=== PATIENT | female | born 1970 | race Caucasian/White ===

== ENCOUNTER 2017-08-20 19:08 | Emergency (ER) | payer BC ==
[~2017-08-20] VITALS: Ht 175.3 cm; Wt 92.8 kg
[~2017-08-20 19:08] MED LIST: AMBIEN10 MG PO; AUGMENTIN875TAB OR; BEYAZ PO; CIPROFLOXACN500 MG PO; FLONASE SPRAY50 MCG; NAPROSYN500 MG PO; ONDANSETRON4 MG PO; PYRIDIUM200 MG PO; ROBITUSSIN AC10 ML PO; ROCEPHIN 1 GM1 GM IM; YAZ1 TAB OR; ZOFRAN ODT4 MG PO; ZYRTEC10 M1 PO
[2017-08-20 20:21] LABS: HEMATOCRIT 38.5 % (37.0-47.0); HEMOGLOBIN 13.2 g/dl (12.0-16.0); IMMATURE GRANULOCYTES 0.3 % (0.0-1.0); MEAN CELL VOLUME 85.9 fL CALC (80.0-100.0); MEAN CORPUSCULAR HGB 29.5 pG CALC (26.0-32.0); MEAN CORPUSCULAR HGB CONC 34.3 g/L CALC (32.0-36.0); NEUT# 7.75 thou/uL (2.00-7.15); RED BLOOD COUNT 4.48 mill/uL (4.20-5.60); RED CELL DISTRI WIDTH 13.4 % (11.5-15.5); URINE BILIRUBIN - DIPSTICK NEGATIVE (NEGATIVE); URINE BLOOD DIPSTICK NEGATIVE (NEGATIVE); URINE CLARITY CLEAR; URINE COLOR YELLOW; URINE GLUCOSE - DIPSTICK NEGATIVE (NEGATIVE); URINE KETONE NEGATIVE (NEGATIVE); URINE LEUK ESTERASE NEGATIVE (NEGATIVE); URINE NITRITE - DIPSTICK NEGATIVE (Negative); URINE PROTEIN - DIPSTICK NEGATIVE (NEG-TRACE); URINE SPECIFIC GRAVITY <=1.005; URINE UROBILINOGEN - DIPSTICK 0.2 E.U./dL (0.2)
[2017-08-20 20:37] LABS: ALBUMIN 4.1 g/dL (3.2-5.0); ALKALINE PHOSPHATASE 120 u/l (38-126); AMYLASE 79 u/l (30-110); ANION GAP 14 (6-22 (CALC)); BILIRUBIN, TOTAL 0.4 mg/dL (0.0-1.4); BUN 13 mg/dL (7-17); BUN/CREATININE RATIO 21 (12-20 (CALC)); CALCIUM 10.4 mg/dL (8.4-10.2); CARBON DIOXIDE 24 mmol/l (22-30); CHLORIDE 104 mmol/l (95-108); CREATININE 0.6 mg/dL (0.5-1.0); GFR > 60 ML/MIN (>=60 (CALC)); GFR FOR AFR.AMER. > 60 ML/MIN (>=60 (CALC)); GLUCOSE 108 mg/dL (65-105); LIPASE 36 u/l (23-300); POTASSIUM 3.4 mmol/l (3.5-5.1); SGOT/AST 40 u/l (14-36); SGPT/ALT 27 u/l (9-52); SODIUM 139 mmol/l (137-146); TOTAL PROTEIN 7.6 g/dL (6.3-8.2)
[2017-08-20 23:31] VITALS: BP 138/78
== END 2017-08-20 23:34 | disposition home or self-care (01) | DRG 392 ==
LOC: ED 19:08
PROVIDERS: Emergency Medicine
DX: R10.9 Unspecified abdominal pain (principal); R11.10 Vomiting, unspecified; R19.7 Diarrhea, unspecified; Z87.442 Personal history of urinary calculi

== ENCOUNTER 2018-06-26 17:34 | Emergency (ER) | payer BC ==
[~2018-06-26] VITALS: Ht 175.3 cm; Wt 104.0 kg
[2018-06-26] MEDS ORDERED: CYMBALTA60 MG PO (17:49)
[2018-06-26] MEDS ORDERED: POTASSIMIN75 MG PO (17:50)
[2018-06-26] MEDS ORDERED: LASIX 40 MG40 MG/TAB PO (17:50)
[2018-06-26] MEDS ORDERED: LOSARTAN POT25 MG PO (17:50)
[2018-06-26] MEDS ORDERED: HYDROXYCHLOR200 MG PO (17:50)
[2018-06-26] MEDS ORDERED: TRAMADOL HCL50 MG PO (17:51)
[2018-06-26 19:31] VITALS: BP 138/81
== END 2018-06-26 19:35 | disposition home or self-care (01) | DRG 556 ==
LOC: ED 17:34
DX: M79.672 Pain in left foot (principal); M32.9 Systemic lupus erythematosus, unspecified; M79.7 Fibromyalgia

== ENCOUNTER → 2018-10-20 | Outpatient (REF) | payer SELFPAY ==
[~2018-10-20] MED LIST changes: +CYMBALTA60 MG PO; +HYDROXYCHLOR200 MG PO; +LASIX 40 MG40 MG/TAB PO; +LOSARTAN POT25 MG PO; +POTASSIMIN75 MG PO; +TRAMADOL HCL50 MG PO
== END | disposition home or self-care (01) | DRG 563 ==
LOC: MRI 06:59
DX: S83.232A Complex tear of medial meniscus, current injury, left knee, initial encounter (principal)

== ENCOUNTER 2021-02-03 16:15 | Emergency (ER) | payer BC ==
[~2021-02-03] VITALS: Ht 175.3 cm; Wt 106.0 kg
[2021-02-03 17:58] LABS: IMMATURE GRANULOCYTES 0.9 % (0.0-5.0); MEAN CELL VOLUME 84.8 fL CALC (80.0-100.0); MEAN CORPUSCULAR HGB 27.9 pG CALC (26.0-32.0); MEAN CORPUSCULAR HGB CONC 32.9 g/dL CAL (32.0-36.0); NEUT# 15.16 thou/uL (2.00-7.15); RED BLOOD COUNT 3.41 mill/uL (4.20-5.60); RED CELL DISTRI WIDTH 13.6 % (11.5-15.5)
[2021-02-03 18:00] LABS: HEMATOCRIT 28.9 % (37.0-47.0); HEMOGLOBIN 9.5 g/dl (12.0-16.0)
[2021-02-03 18:12] LABS: ALBUMIN 3.2 g/dL (3.2-5.0); ALKALINE PHOSPHATASE 123 u/l (38-126); BUN 5 mg/dL (7-17); BUN/CREATININE RATIO 8 (12-20 (CALC)); CARBON DIOXIDE 28 mmol/l (22-30); CHLORIDE 96 mmol/l (95-108); CREATININE 0.6 mg/dL (0.5-1.0); GFR > 60 ML/MIN (>=60 (CALC)); GFR FOR AFR.AMER. > 60 ML/MIN (>=60 (CALC)); POTASSIUM 3.8 mmol/l (3.5-5.1); SGOT/AST 22 u/l (14-36)
[2021-02-03 18:14] LABS: ANION GAP 14 (6-22 (CALC)); BILIRUBIN, TOTAL 0.4 mg/dL (0.0-1.4); SODIUM 134 mmol/l (137-146)
[2021-02-03 18:23] LABS: MYOGLOBIN 45 ng/mL (0 - 62)
[2021-02-03 19:19] LABS: URINE BILIRUBIN - DIPSTICK NEGATIVE (NEGATIVE); URINE BLOOD DIPSTICK NEGATIVE (NEGATIVE); URINE COLOR YELLOW; URINE GLUCOSE - DIPSTICK NEGATIVE (NEGATIVE); URINE KETONE NEGATIVE (NEGATIVE); URINE LEUK ESTERASE NEGATIVE (NEGATIVE); URINE NITRITE - DIPSTICK NEGATIVE (Negative); URINE PROTEIN - DIPSTICK NEGATIVE (NEG-TRACE); URINE SPECIFIC GRAVITY <=1.005; URINE UROBILINOGEN - DIPSTICK 0.2 E.U./dL (0.2)
[2021-02-03 23:00] VITALS: BP 134/77
== END 2021-02-03 23:45 | disposition short-term general hospital (02) | DRG 559 ==
LOC: ED 16:15
PROVIDERS: Emergency Medicine
DX: T84.53XA Infection and inflammatory reaction due to internal right knee prosthesis, initial encounter (principal); J18.9 Pneumonia, unspecified organism; I10 Essential (primary) hypertension; M79.7 Fibromyalgia; Y83.1 Surgical operation with implant of artificial internal device as the cause of abnormal reaction of the patient, or of later complication, without mention of misadventure at the time of the procedure; Z96.652 Presence of left artificial knee joint; Z87.442 Personal history of urinary calculi; Z20.822 Contact with and (suspected) exposure to COVID-19
CPT/HCPCS: Q9967

== ENCOUNTER 2024-09-08 05:58 | Emergency (ER) | payer BC ==
[~2024-09-08] VITALS: Ht 175.3 cm; Wt 90.0 kg
[2024-09-08] VITALS (14 sets, daily range): BP systolic 84–105; BP diastolic 48–74
[~2024-09-08 05:58] MED LIST changes: +METHOTREXATE S2.5 MG PO; +OMEPRAZOLE DR40 MG; +PREGABALIN75 MG; +RAYOS5 MG; +WEGOVY1 MG SC; +ZOFRAN4 MG/TAB PO
[2024-09-08] MEDS ORDERED: SODIUM CHLORIDE 0.9% 1,000 ML IV STA (06:26)
[2024-09-08] MEDS ORDERED: PROMETHAZINE HCL 25 MG/ML AMP IV ONE (06:30)
[2024-09-08] MEDS ORDERED: LOPERAMIDE HCL 2 MG CAP PO ONE (06:30)
[2024-09-08] MEDS ORDERED: ACETAMINOPHEN 500 MG TAB PO ONE (06:30)
[2024-09-08] MEDS ORDERED: KETOROLAC TROMETHAMINE 30 MG/ML SDV IV ONE (06:30)
[2024-09-08 06:59] LABS: BASO% 0.2 % (0-3); EOS% 1.9 % (0-8); IMMATURE GRANULOCYTES 0.2 % (0.0-5.0); MEAN CELL VOLUME 93.1 fL CALC (80.0-100.0); MEAN CORPUSCULAR HGB 28.9 pG CALC (26.0-32.0); MEAN CORPUSCULAR HGB CONC 31.1 g/dL CAL (32.0-36.0); NEUT# 3.36 thou/uL (2.00-7.15); NEUT% 58.7 % (42-76); RED BLOOD COUNT 3.77 mill/uL (4.20-5.60); RED CELL DISTRI WIDTH 15.2 % (11.5-15.5)
[2024-09-08 07:01] LABS: HEMATOCRIT 35.1 % (37.0-47.0); HEMOGLOBIN 10.9 g/dl (12.0-16.0)
[2024-09-08 07:31] LABS: CREATININE 0.6 mg/dL (0.5-1.0); POTASSIUM 3.4 mmol/l (3.5-5.1)
[2024-09-08 07:36] LABS: ALBUMIN 3.2 g/dL (3.2-5.0); BILIRUBIN, TOTAL 0.6 mg/dL (0.02-1.3); TOTAL PROTEIN 6.2 g/dL (6.3-8.2)
== END 2024-09-08 10:24 | disposition home or self-care (01) | DRG 392 ==
LOC: ED 05:58
PROVIDERS: Family Medicine
DX: R19.7 Diarrhea, unspecified (principal); R50.9 Fever, unspecified; R52 Pain, unspecified; R51.9 Headache, unspecified; Z20.822 Contact with and (suspected) exposure to COVID-19
CPT/HCPCS: J2550